=== PATIENT | female | born 1970 | race Caucasian/White ===

== ENCOUNTER 2016-11-12 11:55 | Emergency (ER) | payer OTHER ==
[~2016-11-12] VITALS: Ht 170.2 cm; Wt 84.8 kg
[~2016-11-12 11:55] MED LIST: ARIP15TA5 PO; BUPR-10 PO; FLUO-387 PO; HYDR-4452 PO
--- NOTE | 2016-11-12 11:55 | NUR ---
Patient was BIBA and taken to bed 03 via gurney per EMS.
[2016-11-12 12:05] VITALS: BP 115/85
[2016-11-12] MEDS ORDERED: NACL 0.9% 1,000 ML IV ONE (12:10)
--- NOTE | 2016-11-12 12:20 | NUR ---
PT BIBA C/O LETHARGY. PATIENT STATED SHE TOOK 6MG ATIVAN LAST NIGHT AND WOKE UP STILL LETHARGIC. HX DEPRESSION, COPD, ANXIETY. DENIES N/V/D; SKIN IS PINK/WARM/DRY; AAOX4 WITH EVEN AND STEADY GAIT; LUNGS CLEAR BL; HR EVEN AND REGULAR; PT DENIES ANY FEVER, CP, SOB, OR COUGH AT THIS TIME; PATIENT STATES PAIN OF 0/10 AT THIS TIME; VSS; PATIENT POSITIONED FOR COMFORT; HOB ELEVATED; BEDRAILS UP X2; BED DOWN. ER MD MADE AWARE OF PT STATUS.
[2016-11-12] MEDS ORDERED: ATI.5 PO (12:21)
[2016-11-12] MEDS ORDERED: FLUO40CA6 PO (12:21)
[2016-11-12] MEDS ORDERED: ARIP20TA16 PO (12:21)
[2016-11-12] MEDS ORDERED: FLUO10CA21 PO (12:21)
[2016-11-12] MEDS ORDERED: BUPR300T70 PO (12:21)
--- NOTE | 2016-11-12 12:32 | NUR ---
SPOKE TO ABIOLA FROM POISON CONTROL,WITH RECOMMENDATION TO CHECK ASPIRIN AND TYLENOL LEVEL AND OBSERVE PATIENT 2-4 HRS. DEBI MADE AWARE
[2016-11-12 13:13] LABS: BASOPHILS # (AUTO) 0.2 K/uL (0.00-0.22); BASOPHILS % (AUTO) 3.5 % (0.0-2.0); EOSINOPHILS # (AUTO) 0.2 K/uL (0-0.4); EOSINOPHILS % (AUTO) 2.2 % (0.0-4.0); HEMOGLOBIN 13.8 g/dL (12.0-16.0); LYMPHOCYTES # (AUTO) 1.9 K/uL (2.5-16.5); LYMPHOCYTES % (AUTO) 26.4 % (20.5-51.1); MEAN CORPUSCULAR HEMOGLOBIN 29 pg (27-31); MEAN CORPUSCULAR HGB CONC 33 g/dL (33-37); MEAN CORPUSCULAR VOLUME 89 fL (80-94); MONOCYTES # (AUTO) 0.4 K/uL (0.8-1.0); MONOCYTES % (AUTO) 6.3 % (1.7-9.3); NEUTROPHILS # (AUTO) 4.4 K/uL (1.8-7.7); NEUTROPHILS % (AUTO) 61.6 % (42.2-75.2); PLATELET COUNT (AUTO) 286 K/uL (140-450); RED BLOOD CELL COUNT(AUTO) 4.73 MIL/uL (4.20-5.40); RED CELL DISTRIBUTION WIDTH 13.2 % (11.6-13.7); WHITE BLOOD COUNT (AUTO) 7.1 K/uL (4.8-10.8)
[2016-11-12 13:29] LABS: ANION GAP 11.4 (8-16); CARBON DIOXIDE 27.9 mmol/L (21-32); CHLORIDE 105 mmol/L (98-107); CREATININE 1.2 mg/dL (0.6-1.3); GFR ARICAN-AMERICAN 62 mL/min (>90); GLUCOSE 96 mg/dL (74-106); POTASSIUM 4.3 mmol/L (3.5-5.1); SODIUM SERUM 140 mmol/L (136-145); UREA NITROGEN, BLOOD 11 mg/dL (7-18)
[2016-11-12 13:34] LABS: ALBUMIN 3.6 g/dL (3.4-5.0); ASPARTATE AMINOTRANSFERASE 15 U/L (15-37); TOTAL BILIRUBIN 0.3 mg/dL (0.0-1.0)
[2016-11-12 13:35] LABS: ACETAMINOPHEN < 0.5 ug/ml (10-30); SALICYLATE < 2.8 mg/dL (2.8-20.0)
[2016-11-12 14:42] LABS: BARBITURATE, URINE NEG. ng/ml (NEG <=200); BENZODIAZEPINE, URINE NEG. ng/mL (NEG <=200); CANNABINOID, URINE POS. ng/mL (NEG <=50); COCAINE, URINE NEG. ng/mL (NEG <=300); OPIATE, URINE NEG. ng/mL (NEG <=2000); PHENCYCLIDINE SCREEN,URINE NEG. ng/mL (NEG <=25)
[2016-11-12 15:38] VITALS: BP 115/85
--- NOTE | 2016-11-12 15:38 | NUR ---
Patient discharged with v/s stable. Written and verbal after care instructions given and explained. Patient verbalized understanding. Ambulatory with steady gait. All questions addressed prior to discharge. Advised to follow up with PMD.
== END 2016-11-12 15:38 | disposition home or self-care (01) ==
LOC: MED 11:55
DX: F15.10 Other stimulant abuse, uncomplicated (principal); F12.10 Cannabis abuse, uncomplicated; Z88.1 Allergy status to other antibiotic agents; Z88.8 Allergy status to other drugs, medicaments and biological substances; J45.909 Unspecified asthma, uncomplicated; Z86.73 Personal history of transient ischemic attack (TIA), and cerebral infarction without residual deficits; J44.9 Chronic obstructive pulmonary disease, unspecified
CPT/HCPCS: 36415; 80053; 80305; 85025; 96360; 96361; 99285; G0480; G0482; J7030

== ENCOUNTER 2018-01-04 03:28 | Emergency (ER) | payer OTHER ==
[~2018-01-04] VITALS: Ht 170.2 cm; Wt 85.7 kg
[~2018-01-04 03:28] MED LIST changes: -ARIP15TA5 PO; +ARIP20TA1 PO; +ATI.5 PO; -BUPR-10 PO; +BUPR300T70 PO; -FLUO-387 PO; +FLUO10CA21 PO; +FLUO40CA6 PO; -HYDR-4452 PO
[2018-01-04 03:38] VITALS: BP 146/94
[2018-01-04] MEDS ORDERED: PANT40EC PO (03:43)
[2018-01-04] MEDS ORDERED: NACL 0.9% 1,000 ML IV ONE (03:50)
[2018-01-04 04:36] LABS: BARBITURATE, URINE NEG. ng/ml (NEG <=200); BENZODIAZEPINE, URINE NEG. ng/mL (NEG <=200); CANNABINOID, URINE POS. ng/mL (NEG <=50); COCAINE, URINE NEG. ng/mL (NEG <=300); OPIATE, URINE NEG. ng/mL (NEG <=2000); PHENCYCLIDINE SCREEN,URINE NEG. ng/mL (NEG <=25)
[2018-01-04 04:37] LABS: APPEARANCE,URINE CLEAR (CLEAR); BILIRUBIN,URINE NEGATIVE (NEGATIVE); BLOOD, URINE TRACE (NEGATIVE); COLOR,URINE YELLOW (YELLOW); LEUKOCYTE ESTERASE ,URINE TRACE (NEGATIVE); NITRITE, URINE NEGATIVE (NEGATIVE); UGLUCOSE NEGATIVE (NEGATIVE)
[2018-01-04 04:38] LABS: RBC,URINE 0-5 (RARE) /HPF (0-5)
[2018-01-04 04:39] LABS: BASOPHILS % (AUTO) 0.4 % (0.0-2.0); EOSINOPHILS # (AUTO) 0.2 K/uL (0-0.4); EOSINOPHILS % (AUTO) 2.1 % (0.0-4.0); HEMATOCRIT 42.7 % (36-48); HEMOGLOBIN 14.1 g/dL (12.0-16.0); LYMPHOCYTES # (AUTO) 2.3 K/uL (2.5-16.5); LYMPHOCYTES % (AUTO) 24.2 % (20.5-51.1); MEAN CORPUSCULAR HEMOGLOBIN 30 pg (27-31); MEAN CORPUSCULAR HGB CONC 33 g/dL (33-37); MEAN CORPUSCULAR VOLUME 90.1 fL (80-94); MONOCYTES # (AUTO) 0.6 K/uL (0.8-1.0); MONOCYTES % (AUTO) 6.6 % (1.7-9.3); NEUTROPHILS # (AUTO) 6.3 K/uL (1.8-7.7); NEUTROPHILS % (AUTO) 66.7 % (42.2-75.2); PLATELET COUNT (AUTO) 271 K/uL (140-450); RED BLOOD CELL COUNT(AUTO) 4.74 MIL/uL (4.20-5.40); RED CELL DISTRIBUTION WIDTH 13.2 % (11.6-13.7); WHITE BLOOD COUNT (AUTO) 9.5 K/uL (4.8-10.8)
[2018-01-04 04:49] LABS: ANION GAP 12.5 (8-16); CARBON DIOXIDE 28.1 mmol/L (21-32); CREATININE 1.3 mg/dL (0.6-1.3); POTASSIUM 3.6 mmol/L (3.5-5.1)
[2018-01-04 04:54] LABS: ALBUMIN 3.5 g/dL (3.4-5.0); TOTAL BILIRUBIN 0.4 mg/dL (0.0-1.0)
[2018-01-04 05:25] VITALS: BP 134/77
== END 2018-01-04 05:13 | disposition home or self-care (01) ==
LOC: MED 03:28
DX: G89.29 Other chronic pain (principal); M54.5 Low back pain; R11.2 Nausea with vomiting, unspecified; F15.10 Other stimulant abuse, uncomplicated; R03.0 Elevated blood-pressure reading, without diagnosis of hypertension; J44.9 Chronic obstructive pulmonary disease, unspecified; F17.210 Nicotine dependence, cigarettes, uncomplicated; Z88.1 Allergy status to other antibiotic agents; Z88.8 Allergy status to other drugs, medicaments and biological substances; Z86.73 Personal history of transient ischemic attack (TIA), and cerebral infarction without residual deficits; Z79.899 Other long term (current) drug therapy
CPT/HCPCS: 36415; 74022; 80053; 80305; 81001; 81025; 85025; 87086; 96360; 99285; J7030